=== PATIENT | male | born 1995 ===

== ENCOUNTER 2018-05-14 14:30 | Emergency (ER) | payer MEDICAID, OTHER ==
[2018-05-14 14:31] VITALS: BMI 17.4
[2018-05-14] MEDS ORDERED: Sodium Chloride 0.9% 1,000 ML IV STA ×2 (14:54→17:02)
--- NOTE | 2018-05-14 15:23 | ED PDOC ---
Arrival/HPI - General Chief Complaint: GI Problem Time Seen by Provider: 05/14/18 14:54 Historian: Patient - History of Present Illness Narrative History of Present Illness (Text): 05/14/18 15:20 22yr old male presents today with left sided abdominal pain, nausea and vomiting since 530-6am. pt admits to drinking alcohol last night. pt states pain is along the left upper and lower abdomen, sharp and severe. non radiating. denies fevers. c/o chills. denies urinary symptoms. denies back pain. denies testicular pain. no cp or sob. no medications taken for pain at home. no other complaints. no sick contacts. Time/Duration: Other (530am) Symptom Onset: Sudden Symptom Course: Unchanged Quality: Aching Severity Level: 6 Past Medical History - Provider Review Nursing Documentation Reviewed: Yes - Travel History Have you recently traveled outside [place] w/in the past 3 mons?: No - Infectious Disease Hx of Infectious Diseases: None - Tetanus Immunization Tetanus Immunization: Unknown - Past Medical History Past Medical History: No Previous - Psychiatric Hx Psychophysiologic Disorder: No Hx Substance Use: Yes - Past Surgical History Past Surgical History: No Previous - Suicidal Assessment Feels Threatened In Home Enviroment: No Family/Social History - Physician Review Nursing Documentation Reviewed: Yes Family/Social History: Unknown Family HX Smoking Status: Heavy Smoker > 10 Cigarettes Daily Hx Alcohol Use: Yes Frequency of alcohol use: Socially Hx Substance Use: Yes Substance used: marijuana Hx Substance Use Treatment: No Allergies/Home Meds Allergies/Adverse Reactions: Allergies nickel Allergy (Verified 05/14/18 14:47) RASH Home Medications: Home Meds Medication Instructions Recorded Confirmed No Known Home Med 05/14/18 05/14/18 Review of Systems - Review of Systems Constitutional: absent: Fatigue, Fevers Respiratory: absent: SOB, Cough Cardiovascular: absent: Chest Pain, Palpitations Gastrointestinal: Abdominal Pain, Diarrhea, Nausea, Vomiting. absent: Constipation Genitourinary Male: Other (no testicular pain). absent: Dysuria, Frequency, Hematuria, Urinary Output Changes Musculoskeletal: absent: Arthralgias, Back Pain, Neck Pain Skin: absent: Rash, Pruritis Neurological: absent: Headache, Dizziness Psychiatric: absent: Anxiety, Depression Physical Exam Vital Signs Reviewed: Yes Vital Signs Temp Pulse Resp BP Pulse Ox 05/14/18 19:26 98.6 F 95 H 18 129/78 98 05/14/18 17:54 65 18 135/69 99 05/14/18 15:03 98.2 F 63 18 137/75 99 05/14/18 14:48 98.2 F 63 16 137/75 99 Temperature: Afebrile Blood Pressure: Normal Pulse: Regular Respiratory Rate: Normal Appearance: Positive for: Well-Appearing, Non-Toxic, Comfortable Pain Distress: None Mental Status: Positive for: Alert and Oriented X 3 - Systems Exam Head: Present: Atraumatic Mouth: Present: Moist Mucous Membranes Neck: Present: Normal Range of Motion Respiratory/Chest: Present: Clear to Auscultation, Good Air Exchange. No: Respiratory Distress, Accessory Muscle Use Cardiovascular: Present: Regular Rate and Rhythm, Normal S1, S2. No: Murmurs Abdomen: Present: Tenderness (+ left upper and left lower abdominal tenderness) . No: Distention, Peritoneal Signs, Rebound, Guarding, McBur[place]'s Point Tender Back: Present: Normal Inspection. No: CVA Tenderness, Midline Tenderness, Paraspinal Tenderness Upper Extremity: Present: Normal ROM Lower Extremity: Present: Normal ROM Neurological: Present: GCS=15, Speech Normal Skin: Present: Warm, Dry, Normal Color. No: Rashes Psychiatric: Present: Alert, Oriented x 3 Medical Decision Making ED Course and Treatment: 05/14/18 15:22 Patient is nontoxic well appearing with stable vital signs presenting with [ severe] abdominal pain CBC wbc; 15.2 CMP wnl Lipase wnl Urinalysis + ketones CAT scan: FINDINGS: Examination limited due to paucity of intra-abdominal and intrapelvic fat as well as lack of oral contrast. LOWER THORAX: No visible consolidation, pleural effusion, or pneumothorax. LIVER: Unremarkable. GALLBLADDER AND BILE DUCTS: Unremarkable. PANCREAS: Unremarkable. SPLEEN: Unremarkable. ADRENALS: Unremarkable. KIDNEYS AND URETERS: Kidneys enhance symmetrically. No evidence of hydronephrosis or obstructing calculus. VASCULATURE: No aortic aneurysm. BOWEL: Stomach is nondistended. Lack of oral contrast limits evaluation for bowel pathology. Bowel loops appear within normal limits of caliber without evidence of obstruction. APPENDIX: No secondary signs of acute appendicitis identified. PERITONEUM: No significant free fluid. No definite free air. LYMPH NODES: No bulky adenopathy identified. BLADDER: Unremarkable. REPRODUCTIVE: Unremarkable. BONES: No acute osseous abnormality is detected. OTHER FINDINGS: None. IMPRESSION: Small foci of air favored to reside within bowel, but not definitively localized due to lack of intra-abdominal/pelvic fat and lack of oral contrast. No gross abnormality appreciated. Patient reassessment: pt states pain has slightly improved; nausea and vomiting has resolved. pt is still c/o left sided abdominal pain. pt with + ttp over llq. Discussed all results with patient in depth call placed to dr. ellis surgeon workplace relations adviser; case discussed with surgical oncologist; case discussed with dr. chua; ? possible perforation on CT due to limited study. will admit observational status for serial abdominal examinations and monitor cbc. Impression: Abdominal pain, nausea and vomiting admit observational status Reassessment Condition: Re-examined, Improving,but remains with symptoms - Lab Interpretations Lab Results: 05/14/18 15:40 05/14/18 15:40 Lab Results 05/14/18 16:25: Urine Color Yellow, Urine Appearance Clear, Urine pH 6.0, Ur Specific [place] 1.025, Urine Protein 30 H, Urine Glucose (UA) Negative, Urine Ketones >=80, Urine Blood Small H, Urine Nitrate Negative, Urine Bilirubin Negative, Urine Urobilinogen 0.2, Ur Leukocyte Esterase Negative, Urine RBC 2 - 5, Urine WBC 2 - 5, Ur Epithelial Cells 0 - 2, Urine Bacteria Small 05/14/18 15:40: WBC 15.2 H D, RBC 4.82, Hgb 15.6, Hct 42.4, MCV 88.0, MCH 32.4, MCHC 36.8, RDW 13.8, Plt Count 178, MPV 10.9, Gran % 90.6 H, Lymph % (Auto) 4.9 L, [place] % (Auto) 4.3, Eos % (Auto) 0.0 L, Baso % (Auto) 0.2, Gran # 13.75 H, Lymph # (Auto) 0.8 L, [place] # (Auto) 0.7 H, Eos # (Auto) 0.0, Baso # (Auto) 0.03 , Neutrophils % (Manual) 85 H, Band Neutrophils % 4 H, Lymphocytes % (Manual) 5 L, Monocytes % (Manual) 4, Eosinophils % (Manual) 1, Basophils % (Manual) 1, Platelet Evaluation Normal 05/14/18 15:40: Sodium 146, Potassium 4.2, Chloride 103, Carbon Dioxide 22, Anion Gap 25 H, BUN 19, Creatinine 0.8, Est GFR ( Amer) > 60, Est GFR ( Non-Af Amer) > 60, Random Glucose 108, Calcium 10.0, Total Bilirubin 1.6 H, AST 50, ALT 35, Alkaline Phosphatase 55, Total Protein 9.2 H, Albumin 5.7 H, Globulin 3.4, Albumin/Globulin Ratio 1.7, Lipase 46 - RAD Interpretation Radiology Orders: 05/14/18 16:26 ABD & PELVIS IV CONTRAST ONLY [CT] Stat 05/14/18 19:19 ABD & PELVIS PO CONTRAST ONLY [CT] Stat - Medication Orders Current Medication Orders: Discontinued Medications Sodium Chloride (Sodium Chloride 0.9%) 1,000 mls @ 999 mls/hr IV .Q1H1M STA Stop: 05/14/18 15:54 Last Admin: 05/14/18 15:26 Dose: 999 mls/hr eMAR Start Stop Document 05/14/18 15:26 GERALDINE (Rec: 05/14/18 15:26 GERALDINE [id number]) Intravenous Solution Start Date 05/14/18 Start Time 15:26 End Date 05/14/18 End time 16:36 Total Infusion Time 70 Sodium Chloride (Sodium Chloride 0.9%) 1,000 mls @ 999 mls/hr IV .Q1H1M STA Stop: 05/14/18 18:02 Last Admin: 05/14/18 18:00 Dose: 999 mls/hr eMAR Start Stop Document 05/14/18 18:00 GERALDINE (Rec: 05/14/18 19:34 GERALDINE [email or web address]-PC) Intravenous Solution Start Date 05/14/18 Start Time 18:00 End Date 05/14/18 End time 19:00 Total Infusion Time 60 Ondansetron HCl (Zofran Inj) 4 mg IVP STAT STA Stop: 05/14/18 14:55 Last Admin: 05/14/18 15:27 Dose: 4 mg IVP Administration Document 05/14/18 15:27 GERALDINE (Rec: 05/14/18 15:27 GERALDINE [id number]) Charges for Administration # of IVP Administrations 1 Ondansetron HCl (Zofran Inj) 4 mg IVP STAT STA Stop: 05/14/18 16:43 Last Admin: 05/14/18 18:00 Dose: 4 mg IVP Administration Document 05/14/18 18:00 [facility] (Rec: 05/14/18 19:33 [facility] [id number]) Charges for Administration # of IVP Administrations 1 Pantoprazole Sodium (Protonix Inj) 40 mg IVP STAT STA Stop: 05/14/18 15:23 Last Admin: 05/14/18 15:30 Dose: 40 mg IVP Administration Document 05/14/18 15:30 [facility] (Rec: 05/14/18 15:43 [facility] [id number]) Charges for Administration # of IVP Administrations 1 Disposition/Present on Arrival - Present on Arrival Any Indicators Present on Arrival: No History of DVT/PE: No History of Uncontrolled Diabetes: No Urinary Catheter: No History of Decub. Ulcer: No History Surgical Site Infection Following: None - Disposition Have Diagnosis and Disposition been Completed?: Yes Diagnosis: Abdominal pain Disposition: HOSPITALIZED Disposition Time: 19:00 Patient Plan: Observation Condition: FAIR Forms: [employer] (Slovenian)
[2018-05-14 15:45] LABS: BASO # 0.03 K/mm3 (0.0-2.0); BASO % 0.2 % (0.0-3.0); GRAN # 13.75 (1.4-6.5); GRAN % 90.6 % (50.0-68.0); HEMOGLOBIN 15.6 g/dL (14.0-18.0); LYMPH # 0.8 (1.2-3.4); LYMPH % 4.9 % (22.0-35.0); MEAN CORPUSCULAR HEMOGLOBIN 32.4 pg (25.0-35.0); MEAN CORPUSCULAR HGB CONC 36.8 g/dl (31.0-37.0); MEAN PLATELET VOLUME 10.9 fl (7.0-11.0); MONO # 0.7 (0.1-0.6); MONO % 4.3 % (1.0-6.0); PLATELET COUNT 178 10^3/uL (120.0-450.0); RBC 4.82 10^6/uL (3.5-6.1); RED CELL DISTRIBUTION WIDTH 13.8 % (11.5-14.5); WHITE BLOOD COUNT 15.2 10^3/ul (4.5-11.0)
[2018-05-14 15:54] LABS: ALB/GLOB RATIO 1.7 (1.1-1.8); ALBUMIN 5.7 g/dL (3.0-4.8); ALT/SGPT 35 U/L (7-56); AST/SGOT 50 U/L (17-59); BLOOD UREA NITROGEN 19 mg/dL (7-21); GFR AFRICAN-AMERICAN > 60; GFR NON-AFRICAN AMERICAN > 60; LIPASE 46 U/L (23-300)
[2018-05-14 16:49] LABS: URINE BILIRUBIN NEGATIVE (NEGATIVE); URINE BLOOD SMALL (NEGATIVE); URINE GLUCOSE (UA) NEGATIVE (NEGATIVE); URINE LEUKOCYTE ESTERASE NEGATIVE Leu/uL (NEGATIVE); URINE PROTEIN 30 mg/dL (<30 mg/dL); URINE UROBILINOGEN 0.2 E.U./dL (<1 E.U./dL)
[2018-05-14 16:57] LABS: URINE APPEARANCE CLEAR (CLEAR); URINE COLOR YELLOW (YELLOW)
[2018-05-14] MEDS ORDERED: Iohexol 350 MG/100 ML VIAL ONE (17:06)
[2018-05-14 17:33] LABS: URINE BACTERIA SMALL (NEG); URINE EPITHELIAL CELLS 0 - 2 /hpf (0-5)
[2018-05-14 18:21] LABS: BAND 4 % (0-2); NEUTROPHIL 85 % (50.0-70.0)
[2018-05-14 18:22] LABS: BASOPHIL 1 % (0.0-1.0); EOSINOPHIL 1 % (0.0-3.0); LYMPHOCYTE 5 % (22.0-35.0); MONOCYTE 4 % (1.0-6.0); PLATELET ESTIMATE NORMAL (NORMAL)
--- NOTE | 2018-05-14 18:24 | CT ---
Date of service: 05/14/2018 PROCEDURE: CT Abdomen and Pelvis with contrast HISTORY: left sided abd pain COMPARISON: CT abdomen and pelvis with contrast performed 04/10/14 TECHNIQUE: Contrast dose: 100 mL Omnipaque 350 Radiation dose: Total exam DLP = 228.84 mGy-cm. This CT exam was performed using one or more of the following dose reduction techniques: Automated exposure control, adjustment of the mA and/or kV according to patient size, and/or use of iterative reconstruction technique. FINDINGS: Examination limited due to paucity of intra-abdominal and intrapelvic fat as well as lack of oral contrast. LOWER THORAX: No visible consolidation, pleural effusion, or pneumothorax. LIVER: Unremarkable. GALLBLADDER AND BILE DUCTS: Unremarkable. PANCREAS: Unremarkable. SPLEEN: Unremarkable. ADRENALS: Unremarkable. KIDNEYS AND URETERS: Kidneys enhance symmetrically. No evidence of hydronephrosis or obstructing calculus. VASCULATURE: No aortic aneurysm. BOWEL: Stomach is nondistended. Lack of oral contrast limits evaluation for bowel pathology. Bowel loops appear within normal limits of caliber without evidence of obstruction. APPENDIX: No secondary signs of acute appendicitis identified. PERITONEUM: No significant free fluid. No definite free air. LYMPH NODES: No bulky adenopathy identified. BLADDER: Unremarkable. REPRODUCTIVE: Unremarkable. BONES: No acute osseous abnormality is detected. OTHER FINDINGS: None. IMPRESSION: Small foci of air favored to reside within bowel, but not definitively localized due to lack of intra-abdominal/pelvic fat and lack of oral contrast. No gross abnormality appreciated. Case discussed with Dr. Elias on 05/14/18 at 6:21 p.m.
[2018-05-14] MEDS ORDERED: Iohexol 240 (50 ml) ONE (19:24)
[2018-05-14 19:29] VITALS: TEMP 98.6
--- NOTE | 2018-05-14 19:30 | CP.PCM.CON ---
<Viet Rodriguez - Last Filed: 05/14/18 22:18> History of Present Illness - History of Present Illness History of Present Illness: General Surgery Consult Note for Dr. White This is a 22M with a PMH of constipation and abdominal pain. He reports he used to have frequent abdominal pain that he never had worked up however he has been feeling better. He reports that earlier today he developed left upper and lower abdominal pain, which has since resolved. He reports that he has had a runny nose, a soar throat and developed a hoarse voice 2 days ago. Today he felt febrile however he did not take his temperature. He reports non bloody diarrhea today and non bloody non bilious emesis. He reports that now his abdominal pain is resolved and that he feels comfortable going home. PMH: Denies PSH: Denies Meds: Denies Social: Admits to daily frequent marijuana use, social etoh, denies tobacco. Review of Systems - Review of Systems All systems: reviewed and no additional remarkable complaints except - Constitutional Constitutional: absent: Anorexia, Chills, Fever (Subjective fevers) - EENT Eyes: absent: Blind Spots, Blurred Vision, Change in Vision, Discharge Ears: absent: Ear Discharge, Ear Pain, Tinnitus Nose/Mouth/Throat: Nasal Discharge, Change in Voice, Hoarsness, Sore Throat - Cardiovascular Cardiovascular: Diaphoresis. absent: Chest Pain, Dyspnea - Respiratory Respiratory: absent: Cough, Dyspnea - Gastrointestinal Gastrointestinal: Abdominal Pain (Resolved), Nausea (Reolved), Vomiting. absent : Bloating - Genitourinary Genitourinary: absent: Difficulty Urinating, Dysuria, Hematuria, Pyuria - Integumentary Integumentary: absent: Dry Skin, Lesions, New Lesions, Rash Past Patient History - Infectious Disease Hx of Infectious Diseases: None - Tetanus Immunizations Tetanus Immunization: Unknown - Past Social History Smoking Status: Heavy Smoker > 10 Cigarettes Daily - PSYCHIATRIC Hx Psychophysiologic Disorder: No Hx Substance Use: Yes - SURGICAL HISTORY Hx Surgeries: Yes Meds Allergies/Adverse Reactions: Allergies Allergy/AdvReac Type Severity Reaction Status Date / Time nickel Allergy RASH Verified 05/14/18 14:47 Physical Exam - Constitutional Appears: Non-toxic, No Acute Distress - Head Exam Head Exam: ATRAUMATIC, NORMOCEPHALIC - Eye Exam Eye Exam: EOMI, Normal appearance - ENT Exam ENT Exam: Mucous Membranes Moist, Normal Exam - Respiratory Exam Respiratory Exam: NORMAL BREATHING PATTERN - Cardiovascular Exam Cardiovascular Exam: REGULAR RHYTHM - GI/Abdominal Exam GI & Abdominal Exam: Soft. absent: Distended, Firm, Guarding, Hernia, Rigid, Tenderness - Neurological Exam Neurological exam: Alert, Oriented x3 - Psychiatric Exam Psychiatric exam: Normal Affect, Normal Mood - Skin Skin Exam: Dry, Intact Results - Vital Signs Recent Vital Signs: Last Vital Signs Temp 98.2 F 05/14/18 15:03 Pulse 65 05/14/18 17:54 Resp 18 05/14/18 17:54 BP 135/69 05/14/18 17:54 Pulse Ox 99 05/14/18 17:54 - Labs Result Diagrams: 05/14/18 15:40 05/14/18 15:40 Labs: Laboratory Results - last 24 hr 05/14/18 05/14/18 05/14/18 15:40 15:40 16:25 WBC 15.2 H D RBC 4.82 Hgb 15.6 Hct 42.4 MCV 88.0 MCH 32.4 MCHC 36.8 RDW 13.8 Plt Count 178 MPV 10.9 Gran % 90.6 H Lymph % (Auto) 4.9 L [place] % (Auto) 4.3 Eos % (Auto) 0.0 L Baso % (Auto) 0.2 Gran # 13.75 H Lymph # (Auto) 0.8 L [place] # (Auto) 0.7 H Eos # (Auto) 0.0 Baso # (Auto) 0.03 Neutrophils % (Manual) 85 H Band Neutrophils % 4 H Lymphocytes % (Manual) 5 L Monocytes % (Manual) 4 Eosinophils % (Manual) 1 Basophils % (Manual) 1 Platelet Evaluation Normal Sodium 146 Potassium 4.2 Chloride 103 Carbon Dioxide 22 Anion Gap 25 H BUN 19 Creatinine 0.8 Est GFR ( Amer) > 60 Est GFR (Non-Af Amer) > 60 Random Glucose 108 Calcium 10.0 Total Bilirubin 1.6 H AST 50 ALT 35 Alkaline Phosphatase 55 Total Protein 9.2 H Albumin 5.7 H Globulin 3.4 Albumin/Globulin Ratio 1.7 Lipase 46 Urine Color Yellow Urine Appearance Clear Urine pH 6.0 Ur Specific [place] 1.025 Urine Protein 30 H Urine Glucose (UA) Negative Urine Ketones >=80 Urine Blood Small H Urine Nitrate Negative Urine Bilirubin Negative Urine Urobilinogen 0.2 Ur Leukocyte Esterase Negative Urine RBC 2 - 5 Urine WBC 2 - 5 Ur Epithelial Cells 0 - 2 Urine Bacteria Small Assessment & Plan - Assessment and Plan (Free Text) Assessment: 22M presenting with abdominal pain CT abdomen without PO contrast shows air likely within bowel CT with PO contrast normal study no free air normal appendix WBC 15 Tibili 1.6 today unchanged from prior visit in 2013 Plan: No surgical managment indicated at this time recommend discharge home Recommend followup with GI Discussed with Dr. Cindy Rodriguez PGY <Marcelo White - Last Filed: 05/16/18 14:20> Results - Vital Signs Recent Vital Signs: Last Vital Signs Temp 98.6 F 05/14/18 19:26 Pulse 88 05/14/18 22:46 Resp 16 05/14/18 22:46 BP 132/76 05/14/18 22:46 Pulse Ox 100 05/14/18 22:46 - Labs Result Diagrams: 05/14/18 15:40 05/14/18 15:40 Attending/Attestation - Attestation I have fully participated in the care of the patient.: Yes I have reviewed all pertinent clinical information: Yes Notes (Text): Pt presented with abdominal pain and diarrhea Labs and radiology reviewed Pt can be Dc home with PO antibiotics f.u with PMD Plan d.w resident in detail.
--- NOTE | 2018-05-14 21:59 | CP.PCM.HP ---
<OscarNino - Last Filed: 05/15/18 00:52> History of Present Illness - History of Present Illness History of Present Illness: Nino Moore, PGY-1, Internal Medicine History and Physical for Dr. Grace. CC: abdominal pain and vomiting. 22 year old male with no past medical history presents with 1 day of sharp, stabbing left sided abdominal pain and vomiting at 5:00 AM on 05/14. Patient reports that he has had this pain before when he was diagnosed with constipation in 2013 and was given laxatives to relieve the constipation. Patient reports he has stopped taking the laxatives and now has normal bowel movements 2-3 times a day. His last bowel movement was yesterday afternoon. Today, patient reports that pain started at 5/10 was constant, nonradiating, and associated with 10-15 episodes of vomiting throughout the day. The pain has reduced to 1/10 presently. Patient reports seeing scant traces a blood in the last few episodes of vomiting. Patient reports pain has reduced with protonix and vomiting reduced after zofran administration. Patient reports drinking 4 beers, 2 shots, and 1 whiskey. Patient also smoked 1 gm of marijuana yesterday. Patient reports eating mozarrella sticks yesterday and has not had any travel outside the country in the last 8 months. Patient denies constipation, diarrhea , heartburn, regurgitation, chest pain, heart palpitations, shortness of breath , dysuria, hematuria, headache, and dizziness. 12-point ROS was negative except for what was listed above. PMH: denies PSH: denies Allergies: Nickel FMHx: father from kidney failure, diabetes, and hyperlipidemia. Mother is living without any health issues. SHx: patient denies smoking, patient admits to drinking 2 drinks every other weekend, patient reports daily marijuana use PMD: denies Pharmacy: [facility] [place] pharmacy Insurance: denies Present on Admission - Present on Admission Any Indicators Present on Admission: No History of DVT/PE: No History of Uncontrolled Diabetes: No Review of Systems - Constitutional Constitutional: absent: Anorexia, Chills, Fever - EENT Eyes: absent: Blurred Vision Ears: absent: Decreased Hearing Nose/Mouth/Throat: absent: Sore Throat - Cardiovascular Cardiovascular: absent: Chest Pain, Chest Pain at Rest, Chest Pain with Activity - Respiratory Respiratory: absent: Cough, Dyspnea, Hemoptysis - Gastrointestinal Gastrointestinal: Abdominal Pain (left sided, sharp stabbing), Nausea, Vomiting (10-15 times. minimal blood in last few episodes of vomiting.). absent: Belching, Bloating, Change in Bowel Habits, Constipation, Diarrhea, Dysphagia, Heartburn - Genitourinary Genitourinary: absent: Dysuria, Hematuria - Musculoskeletal Musculoskeletal: absent: Abnormal Gait, Arthralgias, Back Pain - Neurological Neurological: absent: Abnormal Gait, Numbness, Tingling, Tremor, Weakness - Psychiatric Psychiatric: absent: Anxiety, Depression - Endocrine Endocrine: absent: Change in Body Appearance, Fatigue, Polydipsia, Polyphagia, Polyuria Past Patient History - Infectious Disease Hx of Infectious Diseases: None - Tetanus Immunizations Tetanus Immunization: Unknown - Past Social History Smoking Status: Heavy Smoker > 10 Cigarettes Daily - PSYCHIATRIC Hx Psychophysiologic Disorder: No Hx Substance Use: Yes - SURGICAL HISTORY Hx Surgeries: Yes Meds Allergies/Adverse Reactions: Allergies Allergy/AdvReac Type Severity Reaction Status Date / Time nickel Allergy RASH Verified 05/14/18 14:47 Physical Exam - Constitutional Appears: Well, No Acute Distress - Head Exam Head Exam: ATRAUMATIC, NORMOCEPHALIC - Eye Exam Eye Exam: EOMI, PERRL - Neck Exam Neck exam: Positive for: Normal Inspection - Respiratory Exam Respiratory Exam: Clear to Auscultation Bilateral, NORMAL BREATHING PATTERN - Cardiovascular Exam Cardiovascular Exam: REGULAR RHYTHM, RRR - GI/Abdominal Exam GI & Abdominal Exam: Normal Bowel Sounds, Soft, Tenderness (left sided). absent : Distended, Rebound, Rigid - Extremities Exam Extremities exam: Positive for: full ROM, normal inspection - Back Exam Back exam: FULL ROM, NORMAL INSPECTION - Neurological Exam Neurological exam: Alert, CN II-XII Intact, Oriented x3 - Psychiatric Exam Psychiatric exam: Normal Affect, Normal Mood - Skin Skin Exam: Dry, Intact, Normal Color Results - Vital Signs Recent Vital Signs: Last Vital Signs Temp 98.6 F 05/14/18 19:26 Pulse 95 H 05/14/18 19:26 Resp 18 05/14/18 19:26 BP 129/78 05/14/18 19:26 Pulse Ox 98 05/14/18 19:26 - Labs Result Diagrams: 05/14/18 15:40 05/14/18 15:40 Assessment & Plan - Assessment and Plan (Free Text) Assessment: 22 year old male with no past medical history presents with 1 day of sharp, stabbing left sided abdominal pain and vomiting at 5:00 AM on 05/14. Patient reports that he has had this pain before when he was diagnosed with constipation in 2013 and was given laxatives to relieve the constipation. Patient was admitted for abdominal pain and vomiting to rule out small bowel obstruction. Plan: Patient left AMA before being moved up to the floors from the emergency department. Intervention could not be started because patient of patient left AMA. H and P listed below was to be for patient but patient left AMA. Abdominal pain and vomiting 2/2 to hyperemesis cannabinoid syndrome vs. alcohol induced. Doubt small bowel obstruction, gastroenteritis -Patient with history of alcohol and marijuana use complained of abdominal pain and vomiting. Patient reports pain is 1/10. -Patient afebrile. -Abdominal CT w/o contrast: small foci of air favored to reside within bowel, but no definitely localized due to lack of intra-abdominal/pelvic fat and lack of oral contrast. No gross abnormality appreciated. -Abdominal CT w/ contrast: normal appendix. no acute abdominal or pelvic abnormalities. No free intraperitoneal air. -Patient was given protonix and zofran in the ED which helped relieve symptoms. -Patient wants to leave AMA. Patient was explained the risks of leaving AMA including , irreparable harm, and worsening of condition. Patient was told to return to ED if symptoms returned or worsened. As a result, no orders were placed for patient. Alcohol withdrawal -Patient's last drink was about 20 hours ago. -Patient did not show any signs of alcohol withdrawal, but was not able to evaluate patient until 48 hours after last drink. -LFTs are normal, total bilirubin was 1.6. -Patient wants to leave AMA. Patient was explained the risks of leaving AMA including , irreparable harm, and worsening of condition. Patient was told to return to ED if symptoms returned or worsened. As a result, no orders were placed for patient. Leukocytosis likely 2/2 to stress -WBC: 15.2 -Patient wants to leave AMA. Patient was explained the risks of leaving AMA including , irreparable harm, and worsening of condition. Patient was told to return to ED if symptoms returned or worsened. As a result, no orders were placed for patient. Elevated Bilirubin -TBili: 1.6. -Elevation is mild. -Patient wants to leave AMA. Patient was explained the risks of leaving AMA including , irreparable harm, and worsening of condition. Patient was told to return to ED if symptoms returned or worsened. As a result, no orders were placed for patient. Disposition -Patient wants to leave AMA. Patient was explained the risks of leaving AMA including , irreparable harm, and worsening of condition. Patient was told to return to ED if symptoms returned or worsened. Patient seen and assessed with Dr. Grace. - Date & Time Date: 05/14/18 Time: 22:42 <Joselyn Grace - Last Filed: 05/15/18 04:10> Results - Vital Signs Recent Vital Signs: Last Vital Signs Temp 98.6 F 05/14/18 19:26 Pulse 88 05/14/18 22:46 Resp 16 05/14/18 22:46 BP 132/76 05/14/18 22:46 Pulse Ox 100 05/14/18 22:46 - Labs Result Diagrams: 05/14/18 15:40 05/14/18 15:40 Labs: Laboratory Results - last 24 hr 05/14/18 05/14/18 05/14/18 15:40 15:40 16:25 WBC 15.2 H D RBC 4.82 Hgb 15.6 Hct 42.4 MCV 88.0 MCH 32.4 MCHC 36.8 RDW 13.8 Plt Count 178 MPV 10.9 Gran % 90.6 H Lymph % (Auto) 4.9 L [place] % (Auto) 4.3 Eos % (Auto) 0.0 L Baso % (Auto) 0.2 Gran # 13.75 H Lymph # (Auto) 0.8 L [place] # (Auto) 0.7 H Eos # (Auto) 0.0 Baso # (Auto) 0.03 Neutrophils % (Manual) 85 H Band Neutrophils % 4 H Lymphocytes % (Manual) 5 L Monocytes % (Manual) 4 Eosinophils % (Manual) 1 Basophils % (Manual) 1 Platelet Evaluation Normal Sodium 146 Potassium 4.2 Chloride 103 Carbon Dioxide 22 Anion Gap 25 H BUN 19 Creatinine 0.8 Est GFR ( Amer) > 60 Est GFR (Non-Af Amer) > 60 Random Glucose 108 Calcium 10.0 Total Bilirubin 1.6 H AST 50 ALT 35 Alkaline Phosphatase 55 Total Protein 9.2 H Albumin 5.7 H Globulin 3.4 Albumin/Globulin Ratio 1.7 Lipase 46 Urine Color Yellow Urine Appearance Clear Urine pH 6.0 Ur Specific Blanket 1.025 Urine Protein 30 H Urine Glucose (UA) Negative Urine Ketones >=80 Urine Blood Small H Urine Nitrate Negative Urine Bilirubin Negative Urine Urobilinogen 0.2 Ur Leukocyte Esterase Negative Urine RBC 2 - 5 Urine WBC 2 - 5 Ur Epithelial Cells 0 - 2 Urine Bacteria Small Attending/Attestation - Attestation I have personally seen and examined this patient.: Yes I have fully participated in the care of the patient.: Yes I have reviewed all pertinent clinical information: Yes Notes (Text): 05/15/18 04:06 Patient was seen when he was room # in the ER. Medical record was reviewed. Agree with documentation by medical scientific liaison. Later on, medical scientific liaison called that patient wants to sign out. Discussed with him about this situation. Following should be included in documentation.
[2018-05-14 22:48] VITALS: BP 132/76; PULSE 88; RESP 16; O2SAT 100
--- NOTE | 2018-05-15 10:31 | CT ---
Date of service: 05/14/2018 PROCEDURE: CT Abdomen and Pelvis without intravenous contrast HISTORY: Lack of PO contrast on previous study r/o free air COMPARISON: Earlier study same day TECHNIQUE: Without contrast. Contrast dose: Radiation dose: Total exam DLP = 249 mGy-cm. This CT exam was performed using one or more of the following dose reduction techniques: Automated exposure control, adjustment of the mA and/or kV according to patient size, and/or use of iterative reconstruction technique. FINDINGS: LOWER THORAX: Unremarkable. LIVER: Unremarkable. No gross lesion or ductal dilatation. GALLBLADDER AND BILE DUCTS: Unremarkable. PANCREAS: Unremarkable. No gross lesion or ductal dilatation. SPLEEN: Unremarkable. ADRENALS: Unremarkable. No mass. KIDNEYS AND URETERS: Unremarkable. No hydronephrosis. No solid mass. VASCULATURE: Unremarkable. No aortic aneurysm. BOWEL: Unremarkable. No obstruction. No gross mural thickening. APPENDIX: Unremarkable. Normal appendix. PERITONEUM: Unremarkable. No free fluid. No free air. LYMPH NODES: Unremarkable. No enlarged lymph nodes. BLADDER: Unremarkable. REPRODUCTIVE: Unremarkable. BONES: No acute fracture. OTHER FINDINGS: None. IMPRESSION: No evidence of free air
== END 2018-05-14 22:46 | disposition left against medical advice (07) ==
LOC: ED 14:30 → UNDOADMOB 19:38 → ERH 19:38
DX: R10.9 Unspecified abdominal pain (principal); F17.210 Nicotine dependence, cigarettes, uncomplicated
CPT/HCPCS: 74176; 74177; 80053; 81001; 83690; 85025; 96361; 96374; 96375; 99285; C9113; J2405; J7030; Q9966; Q9967